=== PATIENT | female | born 1980 | race African-American/Black ===

== ENCOUNTER 2016-08-05 10:14 | Inpatient (IN) | payer OTHER ==
--- NOTE | ~2016-08-05 | PA ---
Unit #: [id number] #: [id number] Patient: SIRENA DWYER [id number] [place] [address] [id number] MR#: [id number] NAME: SIRENA DWYER ROOM: P208 Age: 36 Sex: F Admission Date: 08/05/2016 : 1980 Date of Assessment: 08/06/2016 Attending Physician: Charanjit Mcelroy M.D. Admitting Physician: Charanjit Mcelroy M.D. Primary Care Physician: Generic Doctor Not In System PSYCHIATRIC ASSESSMENT IDENTIFYING INFORMATION The patient is a 36-year-old female admitted with a history of opioid dependence and recent onset of paranoia. CHIEF COMPLAINT "My stomach hurts." INFORMANT(S) Patient, reliability is fair. HISTORY OF PRESENT ILLNESS The patient is a 36-year-old female who was brought to this facility by her father yesterday. The patient has a history of abuse of illicitly obtained Lortab. She also was reporting increasing psychosis reporting specifically that she was fearful that someone was going to kill her. This had prompted her not to eat or drink in some 3 days. This physician suspected that the patient may be using substances other than Lortab which would explain the onset of these symptoms. During today's interview the patient remains preoccupied with her stomach pain. She is not presently endorsing any psychotic symptoms but does complain of significant symptoms of Lortab withdrawal. PAST PSYCHIATRIC HISTORY The patient denies prior inpatient chemical dependence treatment. PAST MEDICAL HISTORY The patient is currently being treated for urinary tract infection and GERD. MEDICATIONS Cipro. ALLERGIES None. FAMILY HISTORY Noncontributory. SOCIAL HISTORY The patient lives with her father. She is mother of 3 children. She does not work outside the home. She is currently involved with Child Protective Services related to her history of substance abuse. Unit #: [id number] #: [id number] Patient: SIRENA DWYER MENTAL STATUS EXAMINATION Examination at this time reveals the patient to be a slightly obese female appearing her stated age. She is in no moderate physical distress related opioid withdrawal. During interview, she is awake, alert, and oriented in all spheres. Her mood is dysphoric, her affect constricted. Speech is generally well coherent. There are no gross deficits in memory or cognition noted. Intelligence is judged to be in the average range based on fund of knowledge. The patient is generally cooperative during interview. She is currently denying suicidal or homicidal ideation and does not report any paranoid thinking at this point. Her judgment and insight appear to be mildly impaired. ASSETS AND LIABILITIES The patient's assets are to be assessed. Liabilities: Lack of resources, ongoing substance use. DIAGNOSTIC IMPRESSION 1. Opioid use disorder. 2. Psychotic disorder, unspecified. TREATMENT PLAN The patient remains hospitalized for safety and stabilization. We will begin a trial of Zyprexa 10 mg at h.s. and have placed the patient on routine detoxification protocol for opioids. ESTIMATED LENGTH OF STAY 5 to 7 days. Dictated by... Charanjit Mcelroy M.D. JYOTI/francois TD: 08/06/2016 14:18 JOB #: [id number] PSYCHIATRIC ASSESSMENT Page 1 of 1 X Charanjit Mcelroy MD X PSYCHIATRIC ASSESSMENT
--- NOTE | ~2016-08-05 | HP ---
Unit #: [id number] #: [id number] Patient: YANCY DWYER [id number] [place] [address] [id number] I MR#: [id number] NAME: YANCY DWYER ROOM: P208 Age: 36 Sex: F Admission Date: 08/05/2016 : 1980 Attending Physician: Charanjit Mcelroy M.D. Admitting Physician: Charanjit Mcelroy M.D. Primary Care Physician: Generic Doctor Not In System HISTORY AND PHYSICAL HISTORY OF PRESENT ILLNESS Yancy is a 36 year old admitted to [address] [place] [address] because of her abuse of opioids. PAST MEDICAL HISTORY Long history of opioid abuse PAST SURGICAL HISTORY Nothing reported ALLERGIES No known drug allergies. SOCIAL HISTORY Smokes one pack per day. Denies alcohol. Admits to a long history of abusing opioids. FAMILY HISTORY Medically noncontributory. REVIEW OF SYSTEMS CONSTITUTIONAL: No fever or chills. HEENT: Denies any sore throat, ear pain or runny nose. CARDIOVASCULAR: Denies chest pain, irregular heart rhythm or palpitations. CHEST: Denies shortness of breath or cough. No hemoptysis. GASTROINTESTINAL: Denies nausea, vomiting, diarrhea or chronic constipation. ENDOCRINE: Denies history of increased thirst or urination. No recent significant weight loss or gain. GENITOURINARY: Denies dysuria, frequency, or hematuria. SKIN: Denies any rashes. HEMATOLOGIC: Denies history of increased bleeding or bruising. MUSCULOSKELETAL: Denies any hot, swollen joints. No generalized muscle pain. NEUROLOGIC: Denies problems with vision or speech. No frequent, severe headaches. No numbness, tingling or weakness in any extremities. Denies loss of bladder or bowel control. CURRENT MEDICATIONS 1. Detox protocol 2. Cipro 250 mg b.i.d., for a bladder infection Unit #: [id number] #: [id number] Patient: YANCY DWYER PHYSICAL EXAMINATION GENERAL: Alert, well-nourished, in no apparent distress. VITAL SIGNS: Blood pressure 110/80, heart rate 80, respirations 16, temperature 98.6. WEIGHT: 160 pounds. HEIGHT: 5'2". SKIN: Warm and dry without rash or lesion. HEENT: Normocephalic. TMs not viewed. Oral and nasal passages clear. Conjunctivae clear. Pupils equal, round and reactive to light and accommodation. Extraocular movements intact. NECK: Supple without lymphadenopathy or thyromegaly. HEART: Regular rate and rhythm without murmur. LUNGS: Clear. ABDOMEN: Soft, nontender. : Not done. EXTREMITIES: No evidence of cyanosis, clubbing or edema. Moves all extremities without focal deficit. NEUROLOGICAL: Grossly within normal limits. Cranial Nerves: II: Visual medina are intact. III, IV AND : Extraocular movements are intact. Pupils are equal, round and reactive to light. V: Facial sensation is grossly normal. VII: Facial movements and expression are normal. VIII: Auditory acuity grossly intact. IX, X: Uvula is midline. Phonation is normal. XI: Patient shrugs shoulders and turns head normally. XII: Tongue protrudes in the midline. Sensory and Motor Function: Sensory and motor sensation is grossly normal. Motor: moves all extremities well. Coordination: Gait is normal. Deep Tendon Reflexes: Intact. IMPRESSION 1. Psychiatric admission. 2. UTI. The patient was started on antibiotics prior to admission. These have been continued. RECOMMENDATIONS PSYCHIATRIC: Per psychiatrist. MEDICAL: I see no contraindications to participating in facility's activities. MEDICAL PROGNOSIS Good. MEDICAL CONDITION Stable. Dictated by... Amy NeilANelson. for Dominick Boss/julio TD: 08/06/2016 04:04 JOB #: [id number] Unit #: [id number] #: [id number] Patient: YANCY DWYER HISTORY AND PHYSICAL Page 1 of 1 X Carly Barbour HISTORY AND PHYSICAL
--- NOTE | ~2016-08-05 | DS ---
Unit #: [id number] #: [id number] Patient: SIRENA DWYER [id number] [place] [address] [id number] I MR#: [id number] NAME: SIRENA DWYER ROOM: [facility] Age: 36 Sex: F Admission Date: 08/05/2016 : 1980 Discharge Date: 08/07/2016 Attending Physician: Charanjit Mcelroy M.D. Primary Care Physician: Generic Doctor Not In System DISCHARGE SUMMARY REASON FOR ADMISSION The patient is a 36-year-old female, admitted with psychosis and opioid abuse. HOSPITAL COURSE The patient was admitted to the [address] [place] [address] unit and placed on routine detoxification protocol for opioids. She was begun on Zyprexa 10 mg at h.s. related to paranoid symptoms reported at the time of discharge. Interestingly, the patient's drug screen was entirely negative. Her stay in the hospital was an otherwise uneventful one. By 08/07/2016, the patient was in bright spirits and requested discharge. She was agreeable with plan for followup in the intensive outpatient program provided by this facility, and as per her request, discharge was ordered. FINAL DIAGNOSES Opioid use disorder; cocaine use disorder; psychotic disorder, unspecified. DISPOSITION ON DISCHARGE The patient is discharged home on the following medications; Zyprexa 10 mg at bedtime for psychosis. DISCHARGE INSTRUCTIONS No dietary or physical restrictions were placed upon the patient at the time of discharge. FOLLOWUP Followup will take place in the chemical dependency intensive outpatient program provided by this facility. PROGNOSIS The patient's prognosis is considered fair. Dictated by... Charanjit Mcelroy M.D. JYOTI/abel TD: 08/07/2016 13:13 JOB #: [id number] Unit #: [id number] #: [id number] Patient: SIRENA DWYER DISCHARGE SUMMARY Page 1 of 1 X Charanjit Mcelroy MD X DISCHARGE SUMMARY
[2016-08-06 09:54] LABS: BASOPHIL% 0.5 % (0-2.5); EOSINOPHIL# 0.2 X10e3 (0-0.7); EOSINOPHIL% 2.6 % (0.0-7.0); HEMATOCRIT 43.4 % (35.0-45.0); HEMOGLOBIN 14.1 gm/dL (12.0-16.0); LYMPHOCYTE# 2.2 X10e3 (1.0-3.5); LYMPHOCYTE% 35.7 % (17.0-45.0); MEAN CELL VOLUME 98.6 FL (83-96); MEAN CORPUSCULAR HEMOGLOBIN 32.1 PG (28-34); MEAN CORPUSCULAR HGB CONC 32.6 g/dL (30-36); MEAN PLATELET VOLUME 9.3 FL (6.5-11.5); MONOCYTE# 0.5 X10e3 (0-1.0); MONOCYTE% 8.8 % (3.0-12.0); NEUTROPHIL# 3.2 X10e3 (1.5-7.1); NEUTROPHIL% 52.4 % (40-75); PLATELET COUNT 199 X10e3 (140-420); RED BLOOD COUNT 4.41 X10e (3.90-5.30); RED CELL DISTRIBUTION WIDTH 13.3 % (11.0-15.5)
[2016-08-06 09:58] LABS: DIFF IND NO
[2016-08-06 10:01] LABS: URINE APPEARANCE CLEAR; URINE BILIRUBIN NEG (NEG); URINE BLOOD TRACE (NEG); URINE COLOR YELLOW; URINE GLUCOSE NEG (NEG); URINE KETONE NEG (NEG); URINE LEUKOCYTE ESTERASE NEG (NEG); URINE NITRATE NEG (NEG); URINE PH 5.5 (5-8); URINE PROTEIN 1+ (NEG); URINE SPECIFIC GRAVITY 1.008 (1.003-1.035); URINE UROBILINOGEN 0.2 MG/DL (NEG)
[2016-08-06 10:04] LABS: URINE BACTERIA AUWI 1+ (NEGATIVE); URINE SQUAMOUS EPITHELIAL CELL FEW /[HPF]
[2016-08-06 10:26] LABS: AMPHETAMINE NEG (NEG); BARBITURATES NEG (NEG); BENZODIAZEPINES NEG (NEG); COCAINE NEG (NEG); MARIJUANA NEG (NEG); OPIATES NEG (NEG); TRICYCLIC ANTIDEPRESSANTS NEG (NEG); U METHADONE NEG (NEG)
[2016-08-06 10:31] LABS: URINE AMORPHOUS SEDIMENT AMORP URATES
[2016-08-06 11:27] LABS: ALBUMIN SERUM 4.1 g/dL (3.5-5.0); BILIRUBIN,TOTAL 0.6 mg/dL (0.2-2.0); BUN/CREATININE RATIO 5.71; CALCIUM SERUM 9.2 mg/dL (8.4-10.2); CREATININE SERUM 2.1 mg/dL (0.6-1.4); GLOM FILT RATE Estimated 34.5 mL/min (>60); POTASSIUM 3.8 mmol/L (3.5-5.1)
== END 2016-08-07 14:22 | disposition home or self-care (01) | DRG 897 ==
LOC: P2S 13:04
PROVIDERS: Specialist
PROC: HZ2ZZZZ Detoxification Services for Substance Abuse Treatment (ICD-10-PCS; principal; 2016-08-06)
DX: F11.10 Opioid abuse, uncomplicated (principal); F23 Brief psychotic disorder; F17.200 Nicotine dependence, unspecified, uncomplicated; F14.10 Cocaine abuse, uncomplicated
CPT/HCPCS: 80053; 80307; 81003; 84703; 85025; 86592

== ENCOUNTER 2016-11-29 08:00 | Inpatient (IN) | payer OTHER ==
[~2016-11-29] VITALS: Ht 152.4 cm; Wt 68.0 kg
--- NOTE | ~2016-11-29 | PN ---
Unit #: [id number] #: [id number] Patient: SIRENA DWYER [id number] [facility] [address] [place] [address] [id number] MR#: [id number] NAME: SIRENA DWYER ROOM: P212 Age: 36 Sex: F Admission Date: 11/29/2016 : 1980 Attending Physician: Charanjit Mcerloy M.D. Admitting Physician: Charanjit Mcelroy M.D. Primary Care Physician: Jerri Doctor Not In System [facility] PROGRESS NOTES DATE 11/30/2016 DISCUSSION The patient is abed resting comfortably. Staff reports no management issues but states that the patient's participation within therapeutic milieu has been less than optimal. Dictated by... Charanjit Mcelroy M.D. CB/bzg TD: 11/30/2016 12:49 JOB #: [id number] [facility] PROGRESS NOTES Page 1 of 1 X Charanjit Mcelroy MD X PROGRESS NOTE
--- NOTE | ~2016-11-29 | PN ---
Unit #: [id number] #: [id number] Patient: SIRENA DWYER [id number] [facility] [address] [place] [address] [id number] I MR#: [id number] NAME: SIRENA DWYER ROOM: P203 Age: 36 Sex: F Admission Date: 11/29/2016 : 1980 Attending Physician: Charanjit Mcelroy M.D. Admitting Physician: Charanjit Mcelroy M.D. Primary Care Physician: Generic Doctor Not In System [facility] PROGRESS NOTES DATE 12/01/2016 DISCUSSION The patient is active within the therapeutic milieu and seems to have returned to her psychiatric baseline with no evidence of psychosis or withdrawal of evidence. Should she sustain progress discharge will likely take place tomorrow. Dictated by... Charanjit Mcelroy M.D. CB/julio TD: 12/01/2016 21:58 JOB #: [id number] [facility] PROGRESS NOTES Page 1 of 1 X Charanjit Mcelroy MD PROGRESS NOTE
--- NOTE | ~2016-11-29 | HP ---
Unit #: [id number] #: [id number] Patient: YANCY DWYER [id number] [place] [address] [id number] I MR#: [id number] NAME: YANCY DWYER ROOM: P201 Age: 36 Sex: F Admission Date: 11/29/2016 : 1980 Attending Physician: Charanjit Mcelroy M.D. Admitting Physician: Charanjit Mcelroy M.D. Primary Care Physician: Jerri Doctor Not In System HISTORY AND PHYSICAL HISTORY OF PRESENT ILLNESS Yancy is a 36 year old admitted to [address] [place] [address] because of her continued abuse of opioids. She has had other admissions to this facility for the same. PAST MEDICAL HISTORY Long history of opioid abuse. PAST SURGICAL HISTORY Nothing reported. ALLERGIES No known drug allergies. SOCIAL HISTORY Smokes 1 pack per day. Denies alcohol. Admits to a long history of abusing opioids. FAMILY HISTORY Medically noncontributory. REVIEW OF SYSTEMS CONSTITUTIONAL: No fever or chills. HEENT: Denies any sore throat, ear pain or runny nose. CARDIOVASCULAR: Denies chest pain, irregular heart rhythm or palpitations. CHEST: Denies shortness of breath or cough. No hemoptysis. GASTROINTESTINAL: Denies nausea, vomiting, diarrhea or chronic constipation. ENDOCRINE: Denies history of increased thirst or urination. No recent significant weight loss or gain. GENITOURINARY: Denies dysuria, frequency, or hematuria. SKIN: Denies any rashes. HEMATOLOGIC: Denies history of increased bleeding or bruising. MUSCULOSKELETAL: Denies any hot, swollen joints. No generalized muscle pain. NEUROLOGIC: Denies problems with vision or speech. No frequent, severe headaches. No numbness, tingling or weakness in any extremities. Denies loss of bladder or bowel control. CURRENT MEDICATIONS 1. Detox protocol. 2. Zyprexa 10 mg q.h.s. Unit #: [id number] #: [id number] Patient: YANCY DWYER PHYSICAL EXAMINATION GENERAL: Alert, well-nourished, in no apparent distress. VITAL SIGNS: Blood pressure 146/88, heart rate 100, respirations 16, temperature 98.6. WEIGHT: 150. HEIGHT: 5 feet 0 inches. SKIN: Warm and dry without rash or lesion. HEENT: Normocephalic. TMs not viewed. Oral and nasal passages clear. Conjunctivae clear. PERRLA. EOMs intact. NECK: Supple without lymphadenopathy or thyromegaly. HEART: Regular rate and rhythm without murmur. LUNGS: Clear. ABDOMEN: Soft, nontender. : Not done. EXTREMITIES: No evidence of cyanosis, clubbing or edema. Moves all without focal deficit. NEUROLOGICAL: Grossly within normal limits. Cranial Nerves: II: Visual medina are intact. III, IV AND : Extraocular movements are intact. Pupils are equal, round and reactive to light. V: Facial sensation is grossly normal. VII: Facial movements and expression are normal. VIII: Auditory acuity grossly intact. IX, X: Uvula is midline. Phonation is normal. XI: Patient shrugs shoulders and turns head normally. XII: Tongue protrudes in the midline. Sensory and Motor Function: Sensory and motor sensation is grossly normal. Motor: moves all extremities well. Coordination: Gait is normal. Deep Tendon Reflexes: Intact. IMPRESSION Psychiatric admission. RECOMMENDATIONS PSYCHIATRIC: Per psychiatrist. MEDICAL: See no contraindication to participate in facility's activities. MEDICAL PROGNOSIS Good. MEDICAL CONDITION Stable. Dictated by... Carly Barbour PReiANelson. for Dominick Boss/jd TD: 11/29/2016 19:43 JOB #: [id number] Unit #: [id number] #: [id number] Patient: YANCY DWYER HISTORY AND PHYSICAL Page 1 of 1 X Carly Barbour X HISTORY AND PHYSICAL
--- NOTE | ~2016-11-29 | PA ---
Unit #: [id number] #: [id number] Patient: SIRENA DWYER [id number] [place] [address] [id number] I MR#: [id number] NAME: SIRENA DWYER ROOM: P201 Age: 36 Sex: F Admission Date: 11/29/2016 : 1980 Date of Assessment: 11/29/2016 Attending Physician: Charanjit Mcelroy M.D. Admitting Physician: Charanjit Mcelroy M.D. Primary Care Physician: Generic Doctor Not In System PSYCHIATRIC ASSESSMENT IDENTIFYING INFORMATION The patient is a 36-year-old female admitted to the [address] [place] [address] claiming to be addicted to opioids and reporting auditory hallucinations. INFORMANT(S) Patient and chart. RELIABILITY Good. CHIEF COMPLAINT None given. HISTORY OF PRESENT ILLNESS The patient is a 36-year-old female admitted in transfer from [facility]. She states that she "took a cab to there." The patient claims that she has been abusing Lortab but appears to be experiencing no symptoms of opioid withdrawal. During her last hospitalization at this facility which occurred in July of this year, the patient had similarly claimed to be withdrawing from Lortab, yet exhibited no signs or symptoms of withdrawal during her stay in the hospital and in fact exhibited a negative urine drug screen. The patient was reporting positive paranoia and voices and fears that the government was going to harm her. During her last stay in the hospital, she had similar psychotic symptoms and responded well to initiation of Zyprexa but she did not continue that medication following discharge. For a more complete history of present illness, the patient is currently denying any suicidal or homicidal ideation but continues to complain of auditory hallucinations and paranoid delusional thinking. She also claims to be withdrawing from opioids. She denies abuse of other psychoactive substances. For a more complete history of present illness, please refer to previous dictated notes. PAST PSYCHIATRIC HISTORY Reviewed, no changes. FAMILY HISTORY Noncontributory. SOCIAL HISTORY Reviewed, no changes. Unit #: [id number] #: [id number] Patient: SIRENA DWYER MEDICAL HISTORY Reviewed, no changes. MEDICATION HISTORY None at this time. ALLERGIES None reported. MENTAL STATUS EXAM At this time, reveals the patient to be a well-developed, well-nourished female appearing her stated age. She is in no apparent physical distress at time of examination. She is awake, alert, oriented in all spheres. Her mood is mildly dysphoric. Her affect congruent. Speech is generally relevant and coherent. There are no gross deficits in memory or cognition noted. Intelligence is judged to be in the average range based on fund of knowledge. The patient is cooperative throughout the interview. She is currently reporting no suicidal or homicidal ideation. She does report positive auditory hallucinations and paranoid delusions. Her judgement and insight appear to be significantly impaired. ASSETS AND LIABILITIES Patient's assets to be assessed. Liabilities, lack of resources. ADMITTING DIAGNOSES 1. Opioid use disorder by patient history. 2. Psychotic disorder, unspecified. PSYCHIATRIC PLAN/TREATMENT GOALS The patient remains hospitalized for safety and stabilization. We will reinitiate Zyprexa as the patient did respond well to that medication during last stay in the hospital. We will also track routine labs with special interest in UA given the fact that the patient's last hospitalization did involve a urinary tract infection and a possible delirium related thereto. ESTIMATED LENGTH OF STAY Three to five days. Dictated by... Charanjit Mcelroy M.D. JYOTI/jd TD: 11/29/2016 15:22 JOB #: [id number] Unit #: [id number] #: [id number] Patient: SIRENA DWYER PSYCHIATRIC ASSESSMENT Page 1 of 1 X Charanjit Mcelroy MD X PSYCHIATRIC ASSESSMENT
--- NOTE | ~2016-11-29 | DS ---
Unit #: [id number] #: [id number] Patient: SIRENA DWYER [id number] [place] [address] [id number] I MR#: [id number] NAME: SIRENA DWYER ROOM: P203 Age: 36 Sex: F Admission Date: 11/29/2016 : 1980 Discharge Date: 12/02/2016 Attending Physician: Charanjit Mcelroy M.D. Primary Care Physician: Generic Doctor Not In System DISCHARGE SUMMARY REASON FOR ADMISSION The patient is a 36-year-old female admitted to the [address] [place] [address] unit claiming to be experiencing auditory hallucinations and abusing opioids. HOSPITAL COURSE The patient was admitted to the [address] [place] [address] unit and placed on routine detoxification protocol for opioids. She was begun on Zyprexa 10 mg at h.s. which she tolerated without complaint. She showed rapid improvement in mood and reduction in auditory hallucinations. She requested discharge on 12/02 and it was so ordered. FINAL DIAGNOSES 1. Opioid use disorder. 2. Psychotic disorder, unspecified. FOLLOWUP CARE Followup to take place through the auspices of chemical dependence intensive outpatient program provided by this facility. DISCHARGE MEDICATIONS The patient is discharge on no psychotropic or other medications. PROGNOSIS Considered fair. She is informed of the risks, benefits of medications including the possible risk of tardive dyskinesia with long-term use of antipsychotic medications such as Zyprexa. She is likewise apprised of FDA mandated warnings regarding the effects of atypical antipsychotics on metabolism of lipids and glucose. Dictated by... Charanjit Mcelroy M.D. CB/jd Unit #: [id number] #: [id number] Patient: SIRENA DWYER TD: 12/05/2016 15:14 JOB #: [id number] DISCHARGE SUMMARY Page 1 of 1 X Charanjit Mcelroy MD X DISCHARGE SUMMARY
[2016-11-30 11:29] LABS: URINE APPEARANCE CLOUDY; URINE BILIRUBIN NEG (NEG); URINE BLOOD NEG (NEG); URINE COLOR YELLOW; URINE GLUCOSE NEG (NEG); URINE KETONE NEG (NEG); URINE LEUKOCYTE ESTERASE TRACE (NEG); URINE NITRATE NEG (NEG); URINE PROTEIN NEG (NEG); URINE SPECIFIC GRAVITY 1.013 (1.003-1.035)
[2016-11-30 11:33] LABS: URINE BACTERIA AUWI 3+ (NEGATIVE); URINE SQUAMOUS EPITHELIAL CELL MANY /[HPF]; UWBCS1 AUWI 25-50 (0-5)
[2016-11-30 12:26] LABS: AMPHETAMINE NEG (NEG); BARBITURATES NEG (NEG); BENZODIAZEPINES NEG (NEG); COCAINE NEG (NEG); MARIJUANA NEG (NEG); OPIATES POS (NEG); TRICYCLIC ANTIDEPRESSANTS NEG (NEG); U METHADONE NEG (NEG)
== END 2016-12-02 14:42 | DRG 885 ==
LOC: P2S 11:55
PROVIDERS: Specialist
PROC: HZ2ZZZZ Detoxification Services for Substance Abuse Treatment (ICD-10-PCS; principal; 2016-11-29)
DX: F23 Brief psychotic disorder (principal); F11.23 Opioid dependence with withdrawal; F17.210 Nicotine dependence, cigarettes, uncomplicated; E87.6 Hypokalemia; F41.9 Anxiety disorder, unspecified; F32.9 Major depressive disorder, single episode, unspecified; Z88.1 Allergy status to other antibiotic agents
CPT/HCPCS: 80307; 81003